=== PATIENT | male | born 1965 | race Caucasian/White ===

== ENCOUNTER 2017-08-18 11:27 | Emergency (ER) | payer OTHER ==
[~2017-08-18] VITALS: Ht 172.7 cm; Wt 108.3 kg
[2017-08-18 11:28] VITALS: TEMP 36.7; Ht 172.7 cm; Wt 108.3 kg
--- NOTE | 2017-08-18 11:57 | EMERGENCY ROOM VISIT NOTE ---
History First contact with patient: 11:34 Chief Complaint: ANKLE PAIN Stated Complaint: SWOLLEN ANKLE RIGHT History of Present Illness The patient is a 51 year old male who presents to the Emergency Room with complaints of an injury to his right ankle. 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 The injury occurred this morning just prior to arrival. He reports that he felt a popping sensation when this occurred. He now has swelling in the ankle and mild pain. He rates his pain a 1/10 and states this is worsened slightly when he is bearing weight, although he is able to walk without any significant difficulty. He denies previous issues with the ankle. He denies numbness or weakness. He has not taken any medication for pain. He denies any pain of the foot or knee. He is able to move the ankle fully. Review of Systems A complete 6 point review of systems was reviewed with the patient with pertinent positives and negatives as per history of present illness. All else were negative. Past Medical/Surgical History Medical Problems: (1) No significant active problems Social History Smoking Status: Former Smoker Alcohol Use: none Occupation Status: employed Physical Exam Vital Signs Date Time Temp Pulse Resp B/P (MAP) Pulse Ox O2 Delivery O2 Flow Rate FiO2 08/18/17 12:25 88 18 133/79 95 08/18/17 11:28 36.7 93 20 138/87 94 Room Air Physical Exam VITALS: Vitals are noted on the nurse's note and reviewed by myself. Vital signs stable. GENERAL: This is a 51-year-old male, in no acute distress, nondiaphoretic, well- developed well-nourished. SKIN: The skin was without rashes, erythema, edema, or bruising. MUSCULOSKELETAL: There is moderate soft tissue swelling to the lateral aspect of the right ankle. Mild tenderness of the lateral malleolus. Full range of motion of the ankle. Normal plantar flexion and dorsiflexion. DP pulse 2+ NEURO: Patient was alert and oriented to person place and time. Distal sensation intact. Medical Decision & Procedures ER Provider Diagnostic Interpretation: R ANKLE MIN 3 VIEWS ROUTINE CLINICAL HISTORY: right ankle injury, lateral swelling trauma. Pain. COMPARISON: None. DISCUSSION: Evidence for old avulsions from the medial as well as lateral malleolus. Lateral periumbilical soft tissue edema. Subtalar joint is intact. 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 Lateral soft tissue edema. Medical Decision Differential diagnosis includes fracture, contusion, sprain, dislocation, among others. The patient was evaluated as above. X-ray of the right ankle was performed and read by radiology with no acute findings. Patient has been bearing weight without difficulty. He was placed in an Kan wrap. Conservative measures were discussed with the patient. He was instructed to follow-up with his Workmen's Compensation provider if his symptoms do not improve. He verbalized understanding of my assessment and treatment plan and was discharged home in good condition. Medication Reconcilliation Current Medication List: was personally reviewed by me Blood Pressure Screening Patient's blood pressure: Normal blood pressure Impression Primary Impression: Injury of right ankle Departure Information Dispostion Home / Self-Care Condition GOOD Patient Instructions [facility] Additional Instructions You have been treated in the Emergency Department for an Ankle sprain. For pain control, you can use the following [id number] medicines (if >12 yo): - Regular strength (325mg/tab) Tylenol (acetaminophen) 2 tabs every 4-6 hours as needed. Do not exceed 12 tablets in a 24 hour period. Avoid taking more than 4 grams (4000 mg) of Tylenol per day. This includes any other sources of acetaminophen you may take on a regular basis. - Regular strength (200 mg/tab) Advil (ibuprofen) 1-2 tabs every 4-6 hours as needed. Do not exceed a dose of 3200 mg per day. If this is a recent injury (<24 hrs), ice can be applied to the area of pain for the first 3 days to help decrease pain and inflammation. Wear the Kan wrap and gel splint for the next 4-5 days or as needed for swelling /pain. If you have persistent pain or any difficulty walking after 3-4 days, you should follow-up with your Workmen's Compensation provider for a recheck. Return to the Emergency Department if your current symptoms worsen despite treatment course outlined above, or if you develop any of the following symptoms : intractable pain despite aforementioned treatment course or new onset of numbness or tingling of the foot. Problem Qualifiers Primary Impression: Injury of right ankle Encounter type: initial encounter Qualified Codes: S99.911A - Unspecified injury of right ankle, initial encounter
--- NOTE | 2017-08-18 11:58 | DIAGNOSTIC IMAGING REPORT ---
R ANKLE MIN 3 VIEWS ROUTINE CLINICAL HISTORY: right ankle injury, lateral swelling trauma. Pain. COMPARISON: None. DISCUSSION: Evidence for old avulsions from the medial as well as lateral malleolus. Lateral periumbilical soft tissue edema. Subtalar joint is intact. 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 Lateral soft tissue edema. The above report was generated using voice recognition software. It may contain grammatical, syntax or spelling errors. Electronically signed by: Chandrakant Barreto M.D. 08/18/2017 11:56 AM Dictated Date/Time: 08/18/2017 11:56 AM
[2017-08-18 12:25] VITALS: BP 133/79; PULSE 88; O2SAT 95
== END 2017-08-18 12:26 | disposition home or self-care (01) ==
LOC: C.EDB 11:28 → C.EDD 12:26
DX: S99.911A Unspecified injury of right ankle, initial encounter (principal); W10.1XXA Fall (on)(from) sidewalk curb, initial encounter; Y99.0 Civilian activity done for income or pay; Y93.89 Activity, other specified; Z87.891 Personal history of nicotine dependence